=== PATIENT | female | born 1975 | race Caucasian/White ===

== ENCOUNTER 2016-12-08 16:46 | Emergency (ER) | payer OTHER ==
[2016-12-08 17:00] VITALS: O2SAT 100
[2016-12-08] MEDS ORDERED: Vistaril 50 MG/ML IM ONE ×2 (17:08→17:18)
--- NOTE | 2016-12-08 17:15 | ERPHSYRPT ---
- History of Present Illness Time Seen by Provider: 12/08/16 17:00 Source: patient Patient Subjective Stated Complaint: PT STATES YESTERDAY SHE BEGAN EXPERIENCING PROBLEMS WITH HER BLOOD PRESSURE. REPORTS SHE CHECKED IT TODAY AND FOUND IT TO BE 147/104 AND UPON [id number]. PT REPORTS DIZZINESS, SEVERE HEADACHE, AND DOUBLE VISION. PT ALSO NOTES SHE HAS RECENTLY HAD SOME ABNORMAL MENSTRUAL BLEEDING. Triage Nursing Assessment: PT IS AOX3, AMBULATORY TO COT WITH NO DIFFICULTIES, PT APPEARS ANXIOUS, PUPILS ARE PERRL, HAND TRAVEL WRITER ARE STRONG AND EQUAL, RESPS ARE EASY AND NONLABORED, PULSES ARE STRONG AND EQUAL. 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 She has noted higher BP than normal since yesterday. Today it was 135/86 and then higher as she rechecked it. She felt shaky, blurred vision, headache. No chest pain, vomiting. She has had irregular periods and has referral for cat hooker evaluation. She had to leave work and drove to ER. 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 Timing/Duration: today, yesterday Severity: moderate Allergies/Adverse Reactions: ciprofloxacin [From Cipro] Adverse Reaction (Verified 12/08/16 17:01) sulfamethoxazole [From Bactrim] Adverse Reaction (Verified 12/08/16 17:01) trimethoprim [From Bactrim] Adverse Reaction (Verified 12/08/16 17:01) Home Medications: Topiramate [Trokendi Xr] 50 mg PO DAILY 12/08/16 [History] Hx Tetanus, Diphtheria Vaccination/Date Given: No Hx Influenza Vaccination/Date Given: No Hx Pneumococcal Vaccination/Date Given: No Immunizations Up to Date: Yes - Review of Systems Constitutional: No Fever, No Chills Eyes: Vision Changes Ears, Nose, & Throat: No Symptoms Respiratory: No Dyspnea Cardiac: No Chest Pain, No Palpitations, No Syncope Abdominal/Gastrointestinal: No Abdominal Pain, No Nausea, No Vomiting Musculoskeletal: No Back Pain, No Neck Pain Skin: No Rash Neurological: Dizziness, Headache, No Focal Weakness, No Parasthesia All Other Systems: Reviewed and Negative - Past Medical History Pertinent Past Medical History: Yes Cardiac History: Hypertension Psycho-Social History: Anxiety, Depression Female Reproductive Disorders: Endometriosis Other Medical History: OVARIAN CYSTS - Past Surgical History Past Surgical History: Yes Female Surgical History: Dilation & Curettage Other Surgical History: OVARIAN CYST REMOVAL - Social History Smoking Status: Former smoker Drug Use: none Patient Lives Alone: No - Female History Hx Last Menstrual Period: 12/06/16 - Nursing Vital Signs Nursing Vital Signs: Initial Vital Signs Temperature 98.1 F Temperature Source Oral Pulse Rate 72 Respiratory Rate 18 Blood Pressure [Right Arm] 143/72 Pain Intensity 10 - Physical Exam General Appearance: alert Eye Exam: PERRL/EOMI Ears, Nose, Throat Exam: normal ENT inspection, moist mucous membranes Neck Exam: normal inspection, non-tender, supple Respiratory Exam: normal breath sounds Cardiovascular Exam: regular rate/rhythm, No murmur Gastrointestinal/Abdomen Exam: soft, No tenderness, No distention Extremity Exam: normal inspection, normal range of motion Neurologic Exam: alert, oriented x 3, cooperative, magnesium mill operator II-XII nml as tested, nml cerebellar function, nml station & gait, sensation nml, other (flat affect) , No motor deficits Skin Exam: warm, dry, No rash SpO2 Interpretation: normal SpO2: 100 Oxygen Delivery: Room Air - Course Nursing assessment & vital signs reviewed: Yes Ordered Tests: Active Orders 24 hr Category Date Time Status ACCUCHECK [Accucheck] STAT Care 12/08/16 17:09 Active Clean Catch Urine Specimen STAT Care 12/08/16 17:08 Active CULTURE,URINE Stat Lab 12/08/16 17:16 Received HCG,QUALITATIVE URINE Stat Lab 12/08/16 17:18 Completed UA W/ MICROSCOPIC Stat Lab 12/08/16 17:16 Completed Urine Triage Profile Stat Lab 12/08/16 17:16 Completed Medication Summary Discontinued Medications Generic Name Dose Route Start Last Admin Trade Name Freq PRN Reason Stop Dose Admin Hydroxyzine HCl 50 mg 12/08/16 17:08 12/08/16 17:19 Vistaril 50 Mg/Ml IM 12/08/16 17:09 50 mg STAT ONE Administration Hydroxyzine HCl Confirm 12/08/16 17:18 Vistaril 50 Mg/Ml Administered 12/08/16 17:19 Dose 50 mg IM .App [employer] ONE Lab/Rad Data: Laboratory Results 07/02/17 07/02/17 07/02/17 Range/Units 17:18 17:16 17:16 Ur Collection Type CLEAN CATCH Urine Color YELLOW (YELLOW) Urine Appearance CLOUDY (CLEAR) Urine pH 6.0 (5-6) Ur Specific [place] 1.030 (1.005-1.025) Urine Protein TRACE (Negative) Urine Ketones NEGATIVE (NEGATIVE) Urine Blood 5-10 (0-5) Erick/ul Urine Nitrite NEGATIVE (NEGATIVE) Urine Bilirubin NEGATIVE (NEGATIVE) Urine Urobilinogen NORMAL (0-1) mg/dL Ur Leukocyte Esterase TRACE (NEGATIVE) Urine Microscopic RBC 5-10 (0-2) /HPF Urine Microscopic WBC 5-10 (0-5) /HPF Ur Epithelial Cells MANY (FEW) /HPF Calcium Oxalate Crystal 5-10 (NEGATIVE) /HPF Urine Bacteria MANY (NEGATIVE) /HPF Urine Mucus MANY (NEGATIVE) /HPF Urine Glucose NEGATIVE (NEGATIVE) mg/dL Urine HCG, Qual NEGATIVE (Negative) Urine Opiates Level NEG. (NEGATIVE) Ur Methadone NEG. (NEGATIVE) Urine Barbiturates NEG. (NEGATIVE) Ur Phencyclidine (PCP) NEG. (NEGATIVE) Urine Amphetamine POS. (NEGATIVE) U Benzodiazepine Level NEG. (NEGATIVE) Urine Cocaine NEG. (NEGATIVE) Urine Marijuana (THC) NEG. (NEGATIVE) Specimen Received 12/08/16 1720 - Progress Progress Note: 12/08/16 17:55 BP better after vistaril as are symptoms. She now reports taking adipex. INSPECT reviewed and she filled #30 in September. Advised no more adipex and follow up with Dr Lee tomorrow. Will release with instr and work slip. Counseled pt/family regarding: lab results, diagnosis, need for follow-up - Departure Time of Disposition: 17:56 Departure Disposition: Home Clinical Impression: isolated elevation of blood pressure Condition: Fair Critical Care Time: No Referrals: DANK VIDAL [Primary Care Provider] - Instructions: High Blood Pressure, Dextroamphetamine and Amphetamine. Additional Instructions: no more adipex no driving tonite and stay with family off work today call dr lee tomorrow for follow up return for problems or concerns check and record blood pressure twice a day
[2016-12-08 17:31] LABS: Collection Type CLEAN CATCH
[2016-12-08 17:32] LABS: ADD URINE CULTURE? YES (NO); Bacteria MANY /HPF (NEGATIVE); Bilirubin NEGATIVE (NEGATIVE); COMPLETE URINE MICROSCOPIC? YES; Epithelial Cells MANY /HPF (FEW); Glucose NEGATIVE (NEGATIVE); Leukocyte Esterase TRACE (NEGATIVE); Mucus MANY /HPF (NEGATIVE)
[2016-12-08 17:49] VITALS: BP 143/72; PULSE 72
== END 2016-12-08 18:05 | disposition home or self-care (01) ==
LOC: ED 16:46
DX: R03.0 Elevated blood-pressure reading, without diagnosis of hypertension (principal)
CPT/HCPCS: 80307; 81000; 82962; 84703; 87077; 87086; 87186; 96372; 99284; J3410

== ENCOUNTER 2017-09-05 07:44 | Emergency (ER) | payer SELFPAY ==
--- NOTE | 2017-09-05 08:16 | ERPHSYRPT ---
- History of Present Illness Time Seen by Provider: 09/05/17 08:02 Source: patient Exam Limitations: no limitations Patient Subjective Stated Complaint: pt reports left eye swelling and pain beginning yesterday-denies injury Triage Nursing Assessment: pt pink warm and [id number] noted to left eye Physician History: The patient is a 42-year-old female complaining of redness on the left side of her nose that began yesterday and has slowly spread towards her left eye. She woke up this morning with redness under her left eye and her left eye mattered shut. She is concerned about the difficulty with her left eye. 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 She's had MRSA twice around her lips. The initial MRSA with behind her knee. She has been successfully treated for these outbreaks however she has never used any antibiotic ointment in her nose. Today she denies fever or chills. She has no vision changes. Her past medical history is significant for MRSA abscesses. Timing/Duration: yesterday Location: left eye Severity: mild Apparent Injury: no Associated Symptoms: matting Visual Assistive Devices: None Allergies/Adverse Reactions: ciprofloxacin [From Cipro] Adverse Reaction (Mild, Verified 09/05/17 07:49) Vomiting Sulfa (Sulfonamide Antibiotics) Adverse Reaction (Mild, Verified 09/05/17 07:49) Vomiting sulfamethoxazole [From Bactrim] Adverse Reaction (Mild, Verified 09/05/17 07:49) Vomiting trimethoprim [From Bactrim] Adverse Reaction (Mild, Verified 09/05/17 07:49) Vomiting Hx Tetanus, Diphtheria Vaccination/Date Given: No Hx Influenza Vaccination/Date Given: No Hx Pneumococcal Vaccination/Date Given: No Immunizations Up to Date: Yes - Review of Systems Constitutional: No Fever, No Chills Eyes: No Symptoms Ears, Nose, & Throat: No Symptoms Respiratory: No Cough, No Dyspnea Cardiac: No Chest Pain, No Edema, No Syncope Abdominal/Gastrointestinal: No Abdominal Pain, No Nausea, No Vomiting, No Diarrhea Genitourinary Symptoms: No Dysuria Musculoskeletal: No Back Pain, No Neck Pain Skin: No Rash Neurological: No Dizziness, No Focal Weakness, No Sensory Changes Psychological: No Symptoms Endocrine: No Symptoms Hematologic/Lymphatic: No Symptoms Immunological/Allergic: No Symptoms All Other Systems: Reviewed and Negative - Past Medical History Pertinent Past Medical History: Yes Cardiac History: Hypertension Psycho-Social History: Anxiety, Depression Female Reproductive Disorders: Endometriosis Other Medical History: OVARIAN CYSTS - Past Surgical History Past Surgical History: Yes Female Surgical History: Dilation & Curettage Other Surgical History: OVARIAN CYST REMOVAL - Social History Smoking Status: Never smoker Exposure to second hand smoke: No Drug Use: none Patient Lives Alone: No - Female History Hx Last Menstrual Period: hysterectomy Hx Now: No - Nursing Vital Signs Nursing Vital Signs: Initial Vital Signs Pulse Rate 74 09/05/17 07:51 Respiratory Rate 18 09/05/17 07:51 Blood Pressure 137/93 09/05/17 07:51 O2 Sat by Pulse Oximetry 99 09/05/17 07:51 Pain Scale Pain Intensity 5 - Physical Exam General Appearance: no apparent distress Vision Acuity Degree Evaluation Phase: Uncorrected Vision Acuity Right Eye: 20/200 Vision Acuity Left Eye: 20/200 Eye Exam: bilateral eye: normal inspection, PERRL Ears, Nose, Throat Exam: other (There is mild erythema and swelling over the left tip of her nose that extends from the left tip towards the inferior aspect of the left eye and cheek.) Neck Exam: normal inspection Respiratory Exam: normal breath sounds Cardiovascular Exam: regular rate/rhythm Gastrointestinal Exam: soft Extremity Exam: normal inspection Neurologic: alert Skin Exam: normal color, rash SpO2 Interpretation: normal SpO2: 99 Oxygen Delivery: Room Air - Progress Counseled pt/family regarding: diagnosis - Departure Time of Disposition: 08:21 Departure Disposition: Home Clinical Impression: Cellulitis Condition: Stable Critical Care Time: No Additional Instructions: You have the beginnings of cellulitis that is likely due to a flareup of MRSA. Take clindamycin 300 mg 4 times a day for 10 days. Also use 1/2 g mupirocin to each nostril 2 times a day for 5 days. If the condition does not improve within 2-3 days, please contact and isn't your primary medical doctor. Prescriptions: Clindamycin HCl 1 cap PO QID #40 capsule Mupirocin 22 gm TP BID #1 oint...g.
[2017-09-05 08:53] VITALS: BP 121/81; PULSE 71; O2SAT 98
== END 2017-09-05 08:55 | disposition home or self-care (01) ==
LOC: ED 07:44
DX: L03.90 Cellulitis, unspecified (principal); Z86.14 Personal history of Methicillin resistant Staphylococcus aureus infection; H57.12 Ocular pain, left eye; F41.8 Other specified anxiety disorders
CPT/HCPCS: 99282

== ENCOUNTER 2020-04-20 12:31 | Emergency (ER) | payer MEDICAID ==
[2020-04-20] MEDS ORDERED: DELTASONE 20 MG PO ONE (12:56)
[2020-04-20] MEDS ORDERED: DELTASONE 20 MG ONE (13:01)
--- NOTE | 2020-04-20 13:04 | ERPHSYRPT ---
- History of Present Illness Time Seen by Provider: 04/20/20 12:40 Source: patient Exam Limitations: no limitations Patient Subjective Stated Complaint: PT states "I think I am allergic to dust mites. I am swelling in my forehead and arms." Triage Nursing Assessment: Pt presented alert and oriented X 3, skin pwd Pt ambulates with an upright steady gait, able to speak in clear full sentences. PT in no apparent respiratory distress. Pt has red rough spots on her forehead and back of her right arm. Physician History: Patient is a 44-year-old female presents to her ED with complaints of allergic reaction. Patient believes she is allergic to dust mites. Patient complains of pruritus and swelling of her forehead and arms. Symptoms started last night. No associated shortness of breath. No difficulty swallowing. No fullness of her throat. No wheezing. No nausea no vomiting. No diarrhea. No abdominal cramping. There are scattered hives observed on both upper extremity and her forehead. Patient otherwise appears well. Patient symptoms are mild to moderate in intensity. Patient states she feels a fullness to her neck. She is concerned with throat infection. Patient is otherwise generally healthy. She voices no other complaints concerns at this time. Timing/Duration: yesterday Severity: mild Modifying Factors: Improves With: nothing Associated Symptoms: denies symptoms Allergies/Adverse Reactions: ciprofloxacin [From Cipro] Adverse Reaction (Mild, Verified 09/05/17 07:49) Vomiting Sulfa (Sulfonamide Antibiotics) Adverse Reaction (Mild, Verified 09/05/17 07:49) Vomiting sulfamethoxazole [From Bactrim] Adverse Reaction (Mild, Verified 09/05/17 07:49) Vomiting trimethoprim [From Bactrim] Adverse Reaction (Mild, Verified 09/05/17 07:49) Vomiting Hx Tetanus, Diphtheria Vaccination/Date Given: No Hx Influenza Vaccination/Date Given: No Hx Pneumococcal Vaccination/Date Given: No Immunizations Up to Date: Yes Travel Risk - International Travel Have you traveled outside of the country in past 3 weeks: No - Coronavirus Screening Are you exhibiting any of the following symptoms?: No Close contact with a COVID-19 positive Pt in past 14-21 Days: No - Review of Systems Constitutional: No Symptoms, No Fever, No Chills Eyes: No Symptoms Ears, Nose, & Throat: No Symptoms Respiratory: No Symptoms, No Cough, No Dyspnea Cardiac: No Symptoms, No Chest Pain, No Edema, No Syncope Abdominal/Gastrointestinal: No Symptoms, No Abdominal Pain, No Nausea, No Vomiting, No Diarrhea Genitourinary Symptoms: No Symptoms, No Dysuria Musculoskeletal: No Symptoms, No Back Pain, No Neck Pain Skin: No Symptoms, No Rash Neurological: No Symptoms, No Dizziness, No Focal Weakness, No Sensory Changes Psychological: No Symptoms Endocrine: No Symptoms Hematologic/Lymphatic: No Symptoms Immunological/Allergic: No Symptoms All Other Systems: Reviewed and Negative - Past Medical History Pertinent Past Medical History: Yes Neurological History: Migraines Cardiac History: Hypertension Respiratory History: No Pertinent History Endocrine Medical History: Other Musculoskeletal History: Arthritis Psycho-Social History: Anxiety, Depression Female Reproductive Disorders: Endometriosis Other Medical History: history of kidney failure - Past Surgical History Past Surgical History: Yes Female Surgical History: Dilation & Curettage Other Surgical History: OVARIAN CYST REMOVAL - Social History Smoking Status: Former smoker Exposure to second hand smoke: Yes Drug Use: none Patient Lives Alone: Yes - Female History Hx Last Menstrual Period: menopause Hx Now: No - Nursing Vital Signs Nursing Vital Signs: Initial Vital Signs Temperature 98.6 F 04/20/20 12:38 Pulse Rate 98 H 04/20/20 12:38 Respiratory Rate 20 04/20/20 12:38 Blood Pressure 165/90 04/20/20 12:38 Pain Scale Pain Intensity 4 - Physical Exam General Appearance: no apparent distress, alert Eye Exam: PERRL/EOMI, eyes nml inspection Ears, Nose, Throat Exam: normal ENT inspection, TMs normal, pharynx normal, moist mucous membranes Neck Exam: normal inspection, non-tender, supple, full range of motion Respiratory Exam: normal breath sounds, lungs clear, No respiratory distress Cardiovascular Exam: regular rate/rhythm, normal heart sounds, normal peripheral pulses Gastrointestinal/Abdomen Exam: soft, normal bowel sounds, No tenderness, No mass Back Exam: normal inspection, normal range of motion, No CVA tenderness, No vertebral tenderness Extremity Exam: normal inspection, normal range of motion, pelvis stable Neurologic Exam: alert, oriented x 3, cooperative, normal mood/affect, nml cerebellar function, nml station & gait, sensation nml, No motor deficits Skin Exam: normal color, warm, dry, other (Scattered hives on bilateral upper extremity and left forehead. No superimposed cellulitis. No open or draining lesions.), No rash Lymphatic Exam: No adenopathy SpO2 Interpretation: normal SpO2: 98 O2 Delivery: Room Air - Course Nursing assessment & vital signs reviewed: Yes Ordered Tests: Medication Summary Discontinued Medications Generic Name Dose Route Start Last Admin Trade Name Raymundo PRN Reason Stop Dose Admin Prednisone 60 mg 04/20/20 12:56 04/20/20 13:02 Deltasone 20 Mg PO 04/20/20 12:57 60 mg STAT ONE Administration Prednisone Confirm 04/20/20 13:01 Deltasone 20 Mg Administered 04/20/20 13:02 Dose 40 mg .ROUTE .STK-MED ONE Lab/Rad Data: Laboratory Results 04/20/20 Range/Units 13:30 Group A Strep Antibody NOT DETECTED (NEGATIVE) - Progress Progress: improved Progress Note: 04/20/20 13:02 Patient reassessed. Symptoms improved. Will discharge home with a prescription of prednisone. Rapid strep negative. hCG not obtained as patient states she guarantee there is no possibility she could be . Patient declined a test. Patient states is ready for discharge. Patient advised to follow-up with her primary care doctor within 48 hours for reevaluation. Counseled pt/family regarding: lab results, diagnosis, need for follow-up - Departure Departure Disposition: Home Clinical Impression: Hives, Allergies Condition: Stable Critical Care Time: No Referrals: YESENIA KOCH [Primary Care Provider] - Additional Instructions: Discharge/Care Plan CRISTINA POOLE was seen on 04/20/20 in the Emergency Room. The patient was counseled regarding Diagnosis,Lab results, Imaging studies, need for follow up and when to return to the Emergency Room. Prescriptions given: Discharge Note I have spoken with the patient and/or caregivers. I have explained the patient's condition, diagnosis and treatment plan based on the information available to me at this time. I have answered the patient's and/or caregiver's questions and addressed any concerns. The patient and/or caregivers have as good understanding of the patient's diagnosis, condition and treatment plan as can be expected at this point. The vital signs have been stable. The patient's condition is stable and appropriate for discharge from the emergency department. The patient will pursue further outpatient evaluation with the primary care physician or other designated or consulting physician as outlined in the discharge instructions. The patient and/or caregivers are agreeable to this plan of care and follow-up instructions have been explained in detail. The patient and/or caregivers have received these instruction. The patient/and or caregivers are aware that any significant change in condition or worsening of symptoms should prompt an immediate return to this or the closest emergency department or call 911. Prescriptions: Prednisone 10 mg [Deltasone 10 mg] 50 mg PO DAILY 3 Days #15 tablet
[2020-04-20 14:36] VITALS: BP 169/104; PULSE 84; O2SAT 96
== END 2020-04-20 14:35 | disposition home or self-care (01) ==
LOC: ED 12:31
DX: L50.9 Urticaria, unspecified (principal); J30.89 Other allergic rhinitis
CPT/HCPCS: 87651; 99283; A9270-GY

== ENCOUNTER 2020-04-30 22:16 | Emergency (ER) | payer MEDICAID ==
[2020-04-30] MEDS ORDERED: Sodium Chloride 0.9% 1000 ML 1,000 ML IV STA (22:52)
[2020-04-30] MEDS ORDERED: Zofran 4 MG/2 ML VIAL IV ONE (22:52)
[2020-04-30] MEDS ORDERED: BENADRYL 50 MG/ML IV ONE (22:52)
[2020-04-30] MEDS ORDERED: Reglan 10 MG/2 ML IV ONE (22:52)
--- NOTE | 2020-04-30 22:59 | ERPHSYRPT ---
- History of Present Illness Time Seen by Provider: 04/30/20 22:45 Source: patient, EMS Exam Limitations: no limitations Patient Subjective Stated Complaint: Pt c/o dizziness, headache, fatigue, body aches, diarrhea, abd pain, nausea but no vomiting. Triage Nursing Assessment: Pt arrived via EMS with c/o dizziness, headache, fatigue, body aches, diarrhea, abd pain, nausea but no vomiting. Pt states, "I have felt like this ever since I got up today, something has just been off". Lungs clear, heart tones reg and tachy, abd soft with active bs x4 quad, tender on palpation to LLQ. Physician History: 44Years old female with history of anxiety depression, migraines presented in the ER with chief complaint of left temporal headache and dizziness since she woke up this morning. Patient reports she always have dizziness with the headache but she has been feeling weak fatigued and tired with no energy to her routine activities. Denies any difficulty speech, visual disturbance, numbness tingling or focal weakness. Denies any chest pain palpitations or shortness of breath. Patient also reports earlier her blood pressure was more than 150 with a headache and dizziness. It is associated with nausea but no vomiting. She has minimal nonproductive cough and congestion but denies any fever or chills. She has abdominal pain off and on for the last 2 weeks with occasional diarrhea. Complaining of pain in the left lower quadrant. No difficulty urination. Timing/Duration: today, sudden, worse Severity: moderate Modifying Factors: Improves With: movement Associated Symptoms: nausea, abdominal pain, weakness, No chest pain, No fever Allergies/Adverse Reactions: ciprofloxacin [From Cipro] Adverse Reaction (Mild, Verified 04/30/20 22:40) Vomiting Sulfa (Sulfonamide Antibiotics) Adverse Reaction (Mild, Verified 04/30/20 22:40) Vomiting sulfamethoxazole [From Bactrim] Adverse Reaction (Mild, Verified 04/30/20 22:40) Vomiting trimethoprim [From Bactrim] Adverse Reaction (Mild, Verified 04/30/20 22:40) Vomiting Home Medications: No Reportable Medications [No Reported Medications] 04/30/20 [History] Hx Tetanus, Diphtheria Vaccination/Date Given: No Hx Influenza Vaccination/Date Given: No Hx Pneumococcal Vaccination/Date Given: No Immunizations Up to Date: No Travel Risk - International Travel Have you traveled outside of the country in past 3 weeks: No - Coronavirus Screening Are you exhibiting any of the following symptoms?: Yes Symptoms: Vomiting/Diarrhea, Headaches/Body Aches/Fatigue Close contact with a COVID-19 positive Pt in past 14-21 Days: No - Review of Systems Constitutional: No Symptoms Eyes: No Symptoms Ears, Nose, & Throat: No Symptoms Respiratory: No Symptoms Cardiac: No Symptoms Abdominal/Gastrointestinal: Abdominal Pain, Nausea, Diarrhea Genitourinary Symptoms: No Symptoms Musculoskeletal: No Symptoms Neurological: Dizziness, Headache, No Parasthesia, No Seizure, No Sensory Changes, No Speech Changes Psychological: Anxiety, Depression Endocrine: No Symptoms Hematologic/Lymphatic: No Symptoms Immunological/Allergic: No Symptoms - Past Medical History Pertinent Past Medical History: Yes Neurological History: No Pertinent History ENT History: No Pertinent History Cardiac History: No Pertinent History Respiratory History: No Pertinent History Endocrine Medical History: No Pertinent History Musculoskeletal History: No Pertinent History GI Medical History: No Pertinent History History: No Pertinent History Psycho-Social History: Anxiety, Depression, Other Female Reproductive Disorders: No Pertinent History Other Medical History: ocd - Past Surgical History Past Surgical History: Yes Neuro Surgical History: No Pertinent History Cardiac: No Pertinent History Respiratory: No Pertinent History Gastrointestinal: No Pertinent History Genitourinary: No Pertinent History Musculoskeletal: No Pertinent History Female Surgical History: Dilation & Curettage, Other Other Surgical History: FIBROID TUMORS, CYST - Social History Smoking Status: Former smoker Exposure to second hand smoke: No Drug Use: none Patient Lives Alone: Yes - Female History Hx Now: No - Nursing Vital Signs Nursing Vital Signs: Initial Vital Signs Temperature 98.1 F 04/30/20 22:25 Pulse Rate 104 H 04/30/20 22:25 Respiratory Rate 18 04/30/20 22:25 Blood Pressure 144/117 04/30/20 22:25 O2 Sat by Pulse Oximetry 99 04/30/20 22:25 Pain Scale Pain Intensity 8 - Physical Exam General Appearance: no apparent distress, alert, anxiety Eye Exam: PERRL/EOMI, eyes nml inspection Ears, Nose, Throat Exam: normal ENT inspection, TMs normal, pharynx normal Neck Exam: normal inspection, non-tender, supple, full range of motion Respiratory Exam: normal breath sounds, lungs clear Cardiovascular Exam: regular rate/rhythm, normal heart sounds Gastrointestinal/Abdomen Exam: soft, normal bowel sounds, tenderness (Mild left lower quadrant tenderness. No rebound tenderness.) Back Exam: normal inspection, normal range of motion Extremity Exam: normal inspection, normal range of motion, pelvis stable Neurologic Exam: alert, oriented x 3, cooperative, senior care provider II-XII nml as tested, nml cerebellar function, sensation nml, No normal mood/affect (Anxious), No motor deficits, No motor weakness, No facial droop, No slurred speech Skin Exam: normal color SpO2 Interpretation: normal SpO2: 99 O2 Delivery: Room Air - Course EKG Interpreted by Me: RATE (78), Sinus Rhythm, NORMAL AXIS, NORMAL INTERVALS, NORMAL QRS Ordered Tests: Active Orders 24 hr Category Date Time Status EKG-ER Only STAT Care 04/30/20 22:52 Active IV Insertion STAT Care 04/30/20 22:52 Active CHEST 1 VIEW (PORTABLE) Stat Exams 04/30/20 22:53 Taken HEAD WITHOUT CONTRAST [CT] Stat Exams 04/30/20 22:52 Taken HCG,QUALITATIVE URINE Stat Lab 04/30/20 23:06 Completed TROPONIN Q3H Lab 04/30/20 23:00 Completed TROPONIN Q3H Lab 05/01/20 02:00 Ordered TROPONIN Q3H Lab 05/01/20 05:00 Ordered TROPONIN Q3H Lab 05/01/20 08:00 Ordered TROPONIN Q3H Lab 05/01/20 11:00 Ordered UA W/RFX UR CULTURE Stat Lab 04/30/20 23:06 Completed Medication Summary Discontinued Medications Generic Name Dose Route Start Last Admin Trade Name Irajq PRN Reason Stop Dose Admin Diphenhydramine HCl 25 mg 04/30/20 22:52 04/30/20 23:08 Benadryl 50 Mg/Ml IV 04/30/20 22:53 25 mg STAT ONE Administration Diphenhydramine HCl Confirm 04/30/20 23:03 Benadryl 50 Mg/Ml Administered 04/30/20 23:04 Dose 50 mg .ROUTE .STK-MED ONE Sodium Chloride 1,000 mls @ 999 mls/hr 04/30/20 22:52 04/30/20 23:08 Sodium Chloride 0.9% 1000 Ml IV 04/30/20 23:52 999 mls/hr .Q1H1M STA Administration Sodium Chloride Confirm 04/30/20 23:03 Sodium Chloride 0.9% 1000 Ml Administered 04/30/20 23:04 Dose 1,000 mls @ ud .ROUTE .STK-MED ONE Ketorolac Tromethamine 30 mg 05/01/20 00:00 05/01/20 00:03 Toradol 30 Mg Injection IV 05/01/20 00:01 30 mg STAT ONE Administration Ketorolac Tromethamine Confirm 05/01/20 00:02 Toradol 30 Mg Injection Administered 05/01/20 00:03 Dose 30 mg .ROUTE .STK-MED ONE Metoclopramide HCl 10 mg 04/30/20 22:52 04/30/20 23:08 Reglan 10 Mg/2 Ml IV 04/30/20 22:53 10 mg STAT ONE Administration Metoclopramide HCl Confirm 04/30/20 23:03 Reglan 10 Mg/2 Ml Administered 04/30/20 23:04 Dose 10 mg .ROUTE .STK-MED ONE Ondansetron HCl 4 mg 04/30/20 22:52 04/30/20 23:09 Zofran 4 Mg/2 Ml Vial IV 04/30/20 22:53 4 mg STAT ONE Administration Ondansetron HCl Confirm 04/30/20 23:03 Zofran 4 Mg/2 Ml Vial Administered 04/30/20 23:04 Dose 4 mg .ROUTE .STK-MED ONE Lab/Rad Data: Laboratory Result Diagrams 04/30/20 00:25 04/30/20 00:25 Laboratory Results 04/30/20 04/30/20 04/30/20 Range/Units 23:06 23:06 23:00 WBC (4.0-10.5) K/mm3 RBC (4.1-5.4) M/mm3 Hgb (12.0-16.0) gm/dl Hct (35-47) % MCV (78-100) fl MCH (26-32) pg MCHC (32-36) g/dl RDW (11.5-14.0) % Plt Count (150-450) K/mm3 MPV (7.5-11.0) fl Gran % (36.0-66.0) % Eos # (Auto) (0-0.5) Absolute Lymphs (auto) (1.0-4.6) Absolute Monos (auto) (0.0-1.3) Lymphocytes % (24.0-44.0) % Monocytes % (0.0-12.0) % Eosinophils % (0.00-5.0) % Basophils % (0.0-0.4) % Absolute Granulocytes (1.4-6.9) Basophils # (0-0.4) Sodium (137-145) mmol/L Potassium (3.5-5.1) mmol/L Chloride (98-107) mmol/L Carbon Dioxide (22-30) mmol/L Anion Gap (5-15) MEQ/L BUN (7-17) mg/dL Creatinine (0.52-1.04) mg/dL Estimated GFR ML/MIN Glucose (74-106) mg/dL Calcium (8.4-10.2) mg/dL Total Bilirubin (0.2-1.3) mg/dL AST (14-36) U/L ALT (0-35) U/L Alkaline Phosphatase (38-126) U/L Troponin I < 0.012 (0.000-0.034) ng/mL Serum Total Protein (6.3-8.2) g/dL Albumin (3.5-5.0) g/dL Lipase (23-300) U/L Urine Color YELLOW (YELLOW) Urine Appearance CLEAR (CLEAR) Urine pH 6.0 (5-6) Ur Specific [place] 1.011 (1.005-1.025) Urine Protein NEGATIVE (Negative) Urine Ketones NEGATIVE (NEGATIVE) Urine Blood MODERATE (0-5) Erick/ul Urine Nitrite NEGATIVE (NEGATIVE) Urine Bilirubin NEGATIVE (NEGATIVE) Urine Urobilinogen NEGATIVE (0-1) mg/dL Ur Leukocyte Esterase NEGATIVE (NEGATIVE) Urine WBC (Auto) NONE (0-5) /HPF Urine RBC (Auto) NONE (0-2) /HPF U Epithel Cells (Auto) NONE (FEW) /HPF Urine Bacteria (Auto) NONE (NEGATIVE) /HPF Urine Mucus (Auto) SLIGHT (NEGATIVE) /HPF Urine Culture Reflexed NO (NO) Urine Glucose NEGATIVE (NEGATIVE) mg/dL Urine HCG, Qual NEGATIVE (Negative) 04/30/20 04/30/20 Range/Units 00:25 00:25 WBC 11.6 H (4.0-10.5) K/mm3 RBC 4.29 (4.1-5.4) M/mm3 Hgb 13.2 (12.0-16.0) gm/dl Hct 39.7 (35-47) % MCV 92.5 (78-100) fl MCH 30.8 (26-32) pg MCHC 33.2 (32-36) g/dl RDW 13.3 (11.5-14.0) % Plt Count 240 (150-450) K/mm3 MPV 12.0 H (7.5-11.0) fl Gran % 68.5 H (36.0-66.0) % Eos # (Auto) 0.34 (0-0.5) Absolute Lymphs (auto) 2.40 (1.0-4.6) Absolute Monos (auto) 0.87 (0.0-1.3) Lymphocytes % 20.7 L (24.0-44.0) % Monocytes % 7.5 (0.0-12.0) % Eosinophils % 2.9 (0.00-5.0) % Basophils % 0.4 (0.0-0.4) % Absolute Granulocytes 7.94 H (1.4-6.9) Basophils # 0.05 (0-0.4) Sodium 138 (137-145) mmol/L Potassium 3.9 (3.5-5.1) mmol/L Chloride 108 H (98-107) mmol/L Carbon Dioxide 23 (22-30) mmol/L Anion Gap 11.0 (5-15) MEQ/L BUN 14 (7-17) mg/dL Creatinine 0.69 (0.52-1.04) mg/dL Estimated GFR > 60.0 ML/MIN Glucose 112 H (74-106) mg/dL Calcium 9.2 (8.4-10.2) mg/dL Total Bilirubin 0.40 (0.2-1.3) mg/dL AST 23 (14-36) U/L ALT 22 (0-35) U/L Alkaline Phosphatase 101 (38-126) U/L Troponin I (0.000-0.034) ng/mL Serum Total Protein 6.6 (6.3-8.2) g/dL Albumin 3.8 (3.5-5.0) g/dL Lipase 39 (23-300) U/L Urine Color (YELLOW) Urine Appearance (CLEAR) Urine pH (5-6) Ur Specific [place] (1.005-1.025) Urine Protein (Negative) Urine Ketones (NEGATIVE) Urine Blood (0-5) Erick/ul Urine Nitrite (NEGATIVE) Urine Bilirubin (NEGATIVE) Urine Urobilinogen (0-1) mg/dL Ur Leukocyte Esterase (NEGATIVE) Urine WBC (Auto) (0-5) /HPF Urine RBC (Auto) (0-2) /HPF U Epithel Cells (Auto) (FEW) /HPF Urine Bacteria (Auto) (NEGATIVE) /HPF Urine Mucus (Auto) (NEGATIVE) /HPF Urine Culture Reflexed (NO) Urine Glucose (NEGATIVE) mg/dL Urine HCG, Qual (Negative) - Progress Progress: improved, re-examined Progress Note: 05/01/20 01:39 FEELING BETTER Counseled pt/family regarding: lab results, diagnosis, need for follow-up, rad results - Departure Departure Disposition: Home Clinical Impression: Viral syndrome Migraine Qualifiers: Migraine type: without aura Status migrainosus presence: without status migrainosus Intractability: not intractable Qualified Code(s): G43.009 - Migraine without aura, not intractable, without status migrainosus Diarrhea Qualifiers: Diarrhea type: unspecified type Qualified Code(s): R19.7 - Diarrhea, unspecified Condition: Stable Critical Care Time: No Referrals: YESENIA KOCH [Primary Care Provider] - (TOMORROW FOR RE EVALUATION ) Instructions: Migraines (DC), Viral Syndrome (DC) Additional Instructions: Plenty of fluids. Take Tylenol as needed. Follow-up with your primary care physician for reevaluation. Return to ER for any worsening.
[2020-04-30] MEDS ORDERED: Sodium Chloride 0.9% 1000 ML 1,000 ML ONE (23:03)
[2020-04-30] MEDS ORDERED: Zofran 4 MG/2 ML VIAL ONE (23:03)
[2020-04-30] MEDS ORDERED: Reglan 10 MG/2 ML ONE (23:03)
[2020-04-30] MEDS ORDERED: BENADRYL 50 MG/ML ONE (23:03)
[2020-04-30 23:28] LABS: Appearance CLEAR (CLEAR); Bilirubin NEGATIVE (NEGATIVE); Blood MODERATE Ery/ul (0-5); Glucose NEGATIVE (NEGATIVE); Ketones NEGATIVE (NEGATIVE); Leukocyte Esterase NEGATIVE (NEGATIVE); Mucus SLIGHT /HPF (NEGATIVE); Nitrite NEGATIVE (NEGATIVE); Protein,Urine Dip NEGATIVE (Negative); Specific Gravity 1.011 (1.005-1.025); Urobilinogen NEGATIVE mg/dL (0-1)
[2020-05-01] VITALS: O2SAT 99
[2020-05-01] MEDS ORDERED: TORAdol 30 mg Injection IV ONE
[2020-05-01] MEDS ORDERED: TORAdol 30 mg Injection ONE (00:02)
[2020-05-01 00:49] VITALS: BP 146/99
[2020-05-01 01:08] VITALS: PULSE 76
[2020-05-01 01:12] LABS: ALBUMIN 3.8 g/dL (3.5-5.0); ALKALINE PHOSPHATASE 101 U/L (38-126); BLOOD UREA NITROGEN 14 mg/dL (7-17); CHLORIDE 108 mmol/L (98-107); Calcium 9.2 mg/dL (8.4-10.2); Carbon Dioxide 23 mmol/L (22-30); Creatinine 1 0.69 mg/dL (0.52-1.04); EST GLOMERULAR FILTRATION RATE > 60.0 ML/MIN; Glucose 112 mg/dL (74-106); LIPASE 39 U/L (23-300); Potassium 3.9 mmol/L (3.5-5.1); SGOT/AST 23 U/L (14-36); SGPT/ALT 22 U/L (0-35); SODIUM 138 mmol/L (137-145); Total Protein 6.6 g/dL (6.3-8.2)
[2020-05-01 01:38] LABS: Absolute Neutrophil Ct (ANC) 7.94 (1.4-6.9); BASOPHIL % 0.4 % (0.0-0.4); Basophil (Absolute #) 0.05 (0-0.4); Eosinophil % 2.9 % (0.00-5.0); Eosinophil (Absolute #) 0.34 (0-0.5); Hematocrit 39.7 % (35-47); Hemoglobin 13.2 gm/dl (12.0-16.0); Lymphocytes % 20.7 % (24.0-44.0); Mean Cell Volume 92.5 fl (78-100); Mean Corpuscular Hemoglobin 30.8 pg (26-32); Mean Corpuscular Hgb Concent. 33.2 g/dl (32-36); Monocyte (Absolute #) 0.87 (0.0-1.3); Monocytes % 7.5 % (0.0-12.0); Neutrophil % 68.5 % (36.0-66.0); Platelet Count 240 K/mm3 (150-450); Red Blood Count 4.29 M/mm3 (4.1-5.4); Red Cell Distribution Width 13.3 % (11.5-14.0); White Blood Count 11.6 K/mm3 (4.0-10.5)
--- NOTE | 2020-05-01 08:39 | XRAY ---
Indication: Dizziness. Comparison: July 24, 2018. Portable chest again demonstrates normal heart, lungs, and bony thorax.
--- NOTE | 2020-05-01 08:41 | XRAY ---
Indication: Headache and dizziness. Multiple contiguous axial images obtained through the head without contrast. Comparison: None Normal appearing brain parenchyma, ventricles, and bony calvarium. Visualized paranasal sinuses and mastoid air cells are clear. Impression: Normal CT head without contrast exam. Comment: Preliminary interpretation was made by [facility]. No critical discrepancy.
== END 2020-05-01 01:55 | disposition home or self-care (01) ==
LOC: ED 22:16
DX: B34.9 Viral infection, unspecified (principal); R51.9 Headache, unspecified; R53.83 Other fatigue; R19.7 Diarrhea, unspecified; R10.9 Unspecified abdominal pain; R11.0 Nausea; R42 Dizziness and giddiness
CPT/HCPCS: 36000; 36415; 70450; 71045; 80053; 81001; 83690; 84484; 84703; 85025; 93005; 96374; 96375; 99285; J1200; J1885; J2405

== ENCOUNTER 2023-01-09 15:44 | Emergency (ER) | payer OTHER ==
--- NOTE | 2023-01-09 15:46 | ERPHSYRPT ---
- History of Present Illness Time Seen by Provider: 01/09/23 15:46 Source: patient Exam Limitations: no limitations Physician History: This is an overweight 47-year-old white female patient of nurse jenifer Walls who has never been diagnosed with high blood pressure and not on any high blood pressure medication and presents to the emergency department with the com plaint of high blood pressure. Her initial blood pressure here was approximately 139/92. Her heart rate was in the low 100s. Patient states that she has a very anxious person and was at her physical exam appointment to start her new job. There she had 2 readings of blood pressure that was elevated. One was approximately 164 and the other was approximately 170s. Her heart rate was also in the 110 range. Patient cannot start her job until she has been evaluated for blood pressure issues. Patient called the office of nurse practitioner Mayra Walls and she was told to come to the emergency department to be evaluated for any emergency issues. Patient did state that approximately 1 year ago her son . She denies chest pain. She denies shortness of breath. She has no abdominal pain. She denies headache. She denies visual changes. Timing/Duration: today Severity: mild Modifying Factors: Improves With: nothing Associated Symptoms: denies symptoms Allergies/Adverse Reactions: ciprofloxacin [From Cipro] Adverse Reaction (Mild, Verified 04/30/20 22:40) Vomiting Sulfa (Sulfonamide Antibiotics) Adverse Reaction (Mild, Verified 04/30/20 22:40) Vomiting sulfamethoxazole [From Bactrim] Adverse Reaction (Mild, Verified 04/30/20 22:40) Vomiting trimethoprim [From Bactrim] Adverse Reaction (Mild, Verified 04/30/20 22:40) Vomiting Home Medications: Cetirizine HCl [Allergy Relief] 10 mg PO DAILY 01/09/23 [History] Diclofenac Sodium 75 mg PO DAILY 01/09/23 [History] Dicyclomine HCl 10 mg PO DAILY 01/09/23 [History] Hx Tetanus, Diphtheria Vaccination/Date Given: No Hx Influenza Vaccination/Date Given: No Hx Pneumococcal Vaccination/Date Given: No Travel Risk - International Travel Have you traveled outside of the country in past 3 weeks: No - Coronavirus Screening Are you exhibiting any of the following symptoms?: No Close contact with a COVID-19 positive Pt in past 14-21 Days: No - Review of Systems Constitutional: No Symptoms Eyes: No Symptoms Ears, Nose, & Throat: No Symptoms Respiratory: No Symptoms Cardiac: No Symptoms Abdominal/Gastrointestinal: No Symptoms Genitourinary Symptoms: No Symptoms Musculoskeletal: No Symptoms Skin: No Symptoms Neurological: No Symptoms Psychological: No Symptoms Endocrine: No Symptoms Hematologic/Lymphatic: No Symptoms Immunological/Allergic: No Symptoms All Other Systems: Reviewed and Negative - Past Medical History Pertinent Past Medical History: Yes Neurological History: No Pertinent History ENT History: No Pertinent History Cardiac History: No Pertinent History Respiratory History: No Pertinent History Endocrine Medical History: No Pertinent History Musculoskeletal History: No Pertinent History GI Medical History: No Pertinent History History: No Pertinent History Psycho-Social History: Anxiety, Depression, Other Female Reproductive Disorders: No Pertinent History Other Medical History: ocd - Past Surgical History Past Surgical History: Yes Neuro Surgical History: No Pertinent History Cardiac: No Pertinent History Respiratory: No Pertinent History Gastrointestinal: No Pertinent History Genitourinary: No Pertinent History Musculoskeletal: No Pertinent History Female Surgical History: Dilation & Curettage, Other Other Surgical History: FIBROID TUMORS, CYST - Social History Smoking Status: Former smoker Exposure to second hand smoke: No Drug Use: none Patient Lives Alone: Yes - Nursing Vital Signs Nursing Vital Signs: Initial Vital Signs Temperature 97.4 F 01/09/23 15:52 Pulse Rate 128 H 01/09/23 15:52 Respiratory Rate 22 01/09/23 15:52 Blood Pressure 165/119 01/09/23 15:52 O2 Sat by Pulse Oximetry 99 01/09/23 15:52 Pain Scale Pain Intensity 0 - Physical Exam General Appearance: no apparent distress, alert, anxiety, obese Eye Exam: PERRL/EOMI, eyes nml inspection Ears, Nose, Throat Exam: normal ENT inspection, moist mucous membranes Neck Exam: normal inspection, non-tender, supple, full range of motion Respiratory Exam: normal breath sounds, lungs clear, airway intact, No chest tenderness, No respiratory distress Cardiovascular Exam: tachycardia Gastrointestinal/Abdomen Exam: soft, normal bowel sounds, No tenderness Pelvic Exam: not done Rectal Exam: not done Back Exam: normal inspection, normal range of motion, No CVA tenderness, No vertebral tenderness Extremity Exam: normal inspection, normal range of motion, pelvis stable Neurologic Exam: alert, oriented x 3, cooperative, beverage sales consultant II-XII nml as tested, normal mood/affect, nml cerebellar function, nml station & gait, sensation nml Skin Exam: normal color, warm, dry Lymphatic Exam: No adenopathy SpO2 Interpretation: normal O2 Delivery: Room Air - Course Nursing assessment & vital signs reviewed: Yes EKG Interpreted by Me: RATE (107), Sinus Tach, NORMAL AXIS, NORMAL INTERVALS, NORMAL QRS, NORMAL ST-T, Other Ordered Tests: Active Orders 24 hr Category Date Time Status Refinery Operator Alkylation STAT Care 01/09/23 16:20 Active EKG-ER Only STAT Care 01/09/23 16:20 Active IV Insertion STAT Care 01/09/23 16:20 Active Pulse Oximetry (ED) STAT Care 01/09/23 16:20 Active CBC W DIFF Stat Lab 01/09/23 16:30 Completed CMP Stat Lab 01/09/23 16:30 Completed D-DIMER QUANTITATIVE Stat Lab 01/09/23 16:30 Completed TROPONIN Q4H Lab 01/09/23 16:30 Completed TROPONIN Q4H Lab 01/09/23 20:30 Ordered TROPONIN Q4H Lab 01/10/23 00:30 Ordered UA W/RFX UR CULTURE Stat Lab 01/09/23 16:23 Completed Lab/Rad Data: Laboratory Result Diagrams 01/09/23 16:30 01/09/23 16:30 Laboratory Results 01/09/23 01/09/23 01/09/23 Range/Units 16:30 16:30 16:30 WBC (4.0-10.5) x10^3/uL RBC (4.1-5.4) x10^6/uL Hgb (12.0-16.0) g/dL Hct (35-47) % MCV (78-100) fL MCH (26-32) pg MCHC (32-36) g/dL RDW (11.5-14.0) % Plt Count (150-450) x10^3/uL MPV (7.5-11.0) fL Gran % (36.0-66.0) % Immature Gran % (Auto) (0.00-0.4) % Nucleat RBC Rel Count (0.00-0.1) % Eos # (Auto) (0-0.5) x10^3/uL Immature Gran # (Auto) (0.00-0.03) x10^3u/L Absolute Lymphs (auto) (1.0-4.6) x10^3/uL Absolute Monos (auto) (0.0-1.3) x10^3/uL Absolute Nucleated RBC (0.00-0.01) x10^3u/L Lymphocytes % (24.0-44.0) % Monocytes % (0.0-12.0) % Eosinophils % (0.00-5.0) % Basophils % (0.0-0.4) % Absolute Granulocytes (1.4-6.9) x10^3/uL Basophils # (0-0.4) x10^3/uL D-Dimer 0.30 (0.0-0.50) mg/L Sodium 141 (137-145) mmol/L Potassium 3.4 L (3.5-5.1) mmol/L Chloride 105 (98-107) mmol/L Carbon Dioxide 23 (22-30) mmol/L Anion Gap 16.7 H (5-15) MEQ/L BUN 22 H (7-17) mg/dL Creatinine 0.85 (0.52-1.04) mg/dL Estimated GFR > 60.0 ML/MIN Glucose 128 H (74-106) mg/dL Calcium 9.3 (8.4-10.2) mg/dL Total Bilirubin 0.60 (0.2-1.3) mg/dL AST 27 (14-36) U/L ALT 26 (0-35) U/L Alkaline Phosphatase 92 (38-126) U/L Troponin I < 0.012 (0.000-0.034) ng/mL Serum Total Protein 7.3 (6.3-8.2) g/dL Albumin 4.4 (3.5-5.0) g/dL Urine Color (Yellow) Urine Appearance (Clear) Urine pH (4.6-8.0) Ur Specific [place] (1.005-1.030) Urine Protein (Negative) Urine Glucose (UA) (Negative) mg/dL Urine Ketones (Negative) Urine Blood (Negative) Urine Nitrite (Negative) Urine Bilirubin (Negative) Urine Urobilinogen (0.2) mg/dL Ur Leukocyte Esterase (Negative) U Hyaline Cast (Auto) (0-2) /LPF Urine Microscopic RBC (0-5) /HPF Urine Microscopic WBC (0-5) /HPF Ur Epithelial Cells (None Seen) /HPF Urine Bacteria (None Seen) /HPF Urine Culture Reflexed (NO) 01/09/23 01/09/23 Range/Units 16:30 16:23 WBC 8.7 (4.0-10.5) x10^3/uL RBC 4.61 (4.1-5.4) x10^6/uL Hgb 13.7 (12.0-16.0) g/dL Hct 42.5 (35-47) % MCV 92.2 (78-100) fL MCH 29.7 (26-32) pg MCHC 32.2 (32-36) g/dL RDW 12.7 (11.5-14.0) % Plt Count 269 (150-450) x10^3/uL MPV 12.2 H (7.5-11.0) fL Gran % 61.3 (36.0-66.0) % Immature Gran % (Auto) 0.5 H (0.00-0.4) % Nucleat RBC Rel Count 0.0 (0.00-0.1) % Eos # (Auto) 0.19 (0-0.5) x10^3/uL Immature Gran # (Auto) 0.04 H (0.00-0.03) x10^3u/L Absolute Lymphs (auto) 2.70 (1.0-4.6) x10^3/uL Absolute Monos (auto) 0.37 (0.0-1.3) x10^3/uL Absolute Nucleated RBC 0.00 (0.00-0.01) x10^3u/L Lymphocytes % 31.2 (24.0-44.0) % Monocytes % 4.3 (0.0-12.0) % Eosinophils % 2.2 (0.00-5.0) % Basophils % 0.5 (0.0-0.4) % Absolute Granulocytes 5.32 (1.4-6.9) x10^3/uL Basophils # 0.04 (0-0.4) x10^3/uL D-Dimer (0.0-0.50) mg/L Sodium (137-145) mmol/L Potassium (3.5-5.1) mmol/L Chloride (98-107) mmol/L Carbon Dioxide (22-30) mmol/L Anion Gap (5-15) MEQ/L BUN (7-17) mg/dL Creatinine (0.52-1.04) mg/dL Estimated GFR ML/MIN Glucose (74-106) mg/dL Calcium (8.4-10.2) mg/dL Total Bilirubin (0.2-1.3) mg/dL AST (14-36) U/L ALT (0-35) U/L Alkaline Phosphatase (38-126) U/L Troponin I (0.000-0.034) ng/mL Serum Total Protein (6.3-8.2) g/dL Albumin (3.5-5.0) g/dL Urine Color Yellow (Yellow) Urine Appearance Cloudy A (Clear) Urine pH 5.5 (4.6-8.0) Ur Specific [place] >=1.030 A (1.005-1.030) Urine Protein Trace A (Negative) Urine Glucose (UA) Negative (Negative) mg/dL Urine Ketones Trace A (Negative) Urine Blood Negative (Negative) Urine Nitrite Negative (Negative) Urine Bilirubin Negative (Negative) Urine Urobilinogen 0.2 (0.2) mg/dL Ur Leukocyte Esterase Negative (Negative) U Hyaline Cast (Auto) 3-5 A (0-2) /LPF Urine Microscopic RBC 0-2 (0-5) /HPF Urine Microscopic WBC 0-2 (0-5) /HPF Ur Epithelial Cells Many A (None Seen) /HPF Urine Bacteria Few A (None Seen) /HPF Urine Culture Reflexed NO (NO) - Progress Progress: improved Progress Note: 01/09/23 17:50 This patient's medical issue is 1 of moderate complexity. Level of complexity in the work-up performed is based on review of the patient's past medical history, review the patient's medication list, review of the patient's drug allergy list, history present illness and physical findings on examination. The work-up in this patient includes a twelve-lead EKG, urinalysis, CBC, CMP, troponin level and twelve-lead EKG. I reviewed the results of these studies and interpreted the twelve-lead EKG. At the time of discharge, the patient's heart rate is in the 70s and a normal sinus rhythm and the systolic blood pressure is 116. She has no chest pain. The work-up is negative for any acute, emergent medical issue. Patient be discharged home. Counseled pt/family regarding: lab results, diagnosis, need for follow-up Medical Desision Making - Risk of complications Minimal Risk: Minimal risk of morbidity - Departure Departure Disposition: Extended Care Facility Clinical Impression: Anxiety about health, Stress, Normotensive Condition: Stable Critical Care Time: No Referrals: DEEP WALLS, CREDIT CLERK [Primary Care Provider] - Follow up/PCP as directed Additional Instructions: Take your current medication as prescribed. Call nurse practitioner Mayra Walls tomorrow, 01/10/2023, in the morning to make arrangements for further evaluation management.
[2023-01-09 16:02] VITALS: TEMP 97.4
[2023-01-09 16:27] VITALS: O2SAT 98
[2023-01-09 16:53] LABS: Absolute Neutrophil Ct (ANC) 5.32 x10^3/uL (1.4-6.9); BASOPHIL % 0.5 % (0.0-0.4); Basophil (Absolute #) 0.04 x10^3/uL (0-0.4); Eosinophil % 2.2 % (0.00-5.0); Eosinophil (Absolute #) 0.19 x10^3/uL (0-0.5); Hematocrit 42.5 % (35-47); Hemoglobin 13.7 g/dL (12.0-16.0); IMMATURE GRAN # 0.04 x10^3u/L (0.00-0.03); IMMATURE GRAN % 0.5 % (0.00-0.4); Lymphocytes % 31.2 % (24.0-44.0); Mean Cell Volume 92.2 fL (78-100); Mean Corpuscular Hemoglobin 29.7 pg (26-32); Mean Corpuscular Hgb Concent. 32.2 g/dL (32-36); Mean Platelet Volume 12.2 fL (7.5-11.0); Monocyte (Absolute #) 0.37 x10^3/uL (0.0-1.3); Monocytes % 4.3 % (0.0-12.0); Neutrophil % 61.3 % (36.0-66.0); Platelet Count 269 x10^3/uL (150-450); Red Blood Count 4.61 x10^6/uL (4.1-5.4); Red Cell Distribution Width 12.7 % (11.5-14.0); White Blood Count 8.7 x10^3/uL (4.0-10.5)
[2023-01-09 17:09] LABS: Appearance Cloudy (Clear); Bacteria Few /HPF (None Seen); Bilirubin Negative (Negative); Blood Negative (Negative); Epithelial Cells Many /HPF (None Seen); Glucose, Urine Negative (Negative); Ketones Trace (Negative); Leukocyte Esterase Negative (Negative); Nitrite Negative (Negative); Ph 5.5 (4.6-8.0); Protein,Urine Dip Trace (Negative); RBC 0-2 /HPF (0-5); Specific Gravity >=1.030 (1.005-1.030); Urobilinogen 0.2 mg/dL (0.2); WBC 0-2 /HPF (0-5)
[2023-01-09 17:10] LABS: ALBUMIN 4.4 g/dL (3.5-5.0); ALKALINE PHOSPHATASE 92 U/L (38-126); ANION GAP 16.7 MEQ/L (5-15); BLOOD UREA NITROGEN 22 mg/dL (7-17); CHLORIDE 105 mmol/L (98-107); Calcium 9.3 mg/dL (8.4-10.2); Carbon Dioxide 23 mmol/L (22-30); Creatinine 1 0.85 mg/dL (0.52-1.04); EST GLOMERULAR FILTRATION RATE > 60.0 ML/MIN; Glucose 128 mg/dL (74-106); Potassium 3.4 mmol/L (3.5-5.1); SGOT/AST 27 U/L (14-36); SGPT/ALT 26 U/L (0-35); SODIUM 141 mmol/L (137-145); Total Protein 7.3 g/dL (6.3-8.2)
[2023-01-09 17:22] LABS: ADD URINE CULTURE? NO (NO)
[2023-01-09 18:03] VITALS: BP 116/74; PULSE 76; RESP 16
== END 2023-01-09 18:06 | disposition home or self-care (01) ==
LOC: ED 15:44
DX: F45.9 Somatoform disorder, unspecified (principal); F43.9 Reaction to severe stress, unspecified; R03.0 Elevated blood-pressure reading, without diagnosis of hypertension; Z56.1 Change of job; Z63.4 Disappearance and death of family member; Z79.899 Other long term (current) drug therapy
CPT/HCPCS: 36415; 80053; 81001; 84484; 85025; 85379; 93005; 93041; 94760; 99283

== ENCOUNTER 2023-06-11 14:19 | Emergency (ER) | payer MEDICAID ==
[2023-06-11 14:30] VITALS: RESP 20
[2023-06-11] MEDS ORDERED: solu-MEDROL 125 MG, Sterile H2O 10 ml 2 ML IM ONE ×2 (15:01)
[2023-06-11] MEDS ORDERED: Pepcid 20 MG PO ONE (15:01)
[2023-06-11] MEDS ORDERED: solu-MEDROL ONE (15:06)
[2023-06-11] MEDS ORDERED: Pepcid 20 MG ONE (15:06)
[2023-06-11] MEDS ORDERED: Sterile H2O 10 ml IJ ONE (15:06)
--- NOTE | 2023-06-11 15:10 | ERPHSYRPT ---
- History of Present Illness Time Seen by Provider: 06/11/23 14:40 Source: patient Exam Limitations: no limitations Patient Subjective Stated Complaint: Pt states "I got a dog 6 months ago and then we went to [place] and I just got back and for the past month, my eyes are puffy, my nose is congested and it all started when we were in the hotel in [place] which was a pet hotel room." Triage Nursing Assessment: Pt presented alert and oriented X 3, skin pwd. Pt ambulates with an upright steady gait, able to speak in clear full sentences. PT in no apparent distress. 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 In addition, the patient also brought a new dog 6 months ago. Patient is here today because of nasal congestion, tearing, runny nose and allergy type symptoms. Patient has a history of seasonal allergies but in the last several days her symptoms are much worse. She is using topical hydrocortisone and triple antibiotic ointment around her eyes where there was a rash. She is taking Benadryl and Pepcid. She has no chest pain. She has no shortness of breath. She denies wheezing. Timing/Duration: day(s), worse Severity: mild (To moderate) Associated Symptoms: No shortness of breath, No cough, No chest pain Allergies/Adverse Reactions: ciprofloxacin [From Cipro] Adverse Reaction (Mild, Verified 04/30/20 22:40) Vomiting Sulfa (Sulfonamide Antibiotics) Adverse Reaction (Mild, Verified 04/30/20 22:40) Vomiting sulfamethoxazole [From Bactrim] Adverse Reaction (Mild, Verified 04/30/20 22:40) Vomiting trimethoprim [From Bactrim] Adverse Reaction (Mild, Verified 04/30/20 22:40) Vomiting Home Medications: Cetirizine HCl [Allergy Relief] 10 mg PO DAILY 01/09/23 [History] Diclofenac Sodium 75 mg PO BID 01/09/23 [History] Dicyclomine HCl 10 mg PO DAILY 01/09/23 [History] Hx Tetanus, Diphtheria Vaccination/Date Given: No Hx Influenza Vaccination/Date Given: No Hx Pneumococcal Vaccination/Date Given: No Immunizations Up to Date: No Travel Risk - International Travel Have you traveled outside of the country in past 3 weeks: No - Coronavirus Screening Are you exhibiting any of the following symptoms?: No Close contact with a COVID-19 positive Pt in past 14-21 Days: No - Vaccine Status Have you recieved a Covid-19 vaccination: No 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 - Vaccination Dates Date of 2cond Vaccination (if applicable): unknown - Review of Systems Constitutional: No Symptoms Eyes: Itchy (Around her eyes intermittently), Tearing (Intermittently) Ears, Nose, & Throat: Nose Discharge (Minimally clear) Respiratory: No Symptoms Cardiac: No Symptoms Abdominal/Gastrointestinal: No Symptoms Genitourinary Symptoms: No Symptoms Musculoskeletal: No Symptoms Skin: No Symptoms Neurological: No Symptoms Psychological: No Symptoms Endocrine: No Symptoms Hematologic/Lymphatic: No Symptoms Immunological/Allergic: No Symptoms All Other Systems: Reviewed and Negative - Past Medical History Pertinent Past Medical History: Yes Neurological History: No Pertinent History ENT History: No Pertinent History Cardiac History: No Pertinent History Respiratory History: No Pertinent History Endocrine Medical History: No Pertinent History Musculoskeletal History: No Pertinent History GI Medical History: No Pertinent History History: No Pertinent History Psycho-Social History: Anxiety, Depression, Other Female Reproductive Disorders: No Pertinent History Other Medical History: ocd - Past Surgical History Past Surgical History: Yes Neuro Surgical History: No Pertinent History Cardiac: No Pertinent History Respiratory: No Pertinent History Gastrointestinal: No Pertinent History Genitourinary: No Pertinent History Musculoskeletal: No Pertinent History Female Surgical History: Dilation & Curettage, Other Other Surgical History: FIBROID TUMORS, CYST - Social History Smoking Status: Former smoker Exposure to second hand smoke: No Drug Use: none Patient Lives Alone: Yes - Female History Hx Last Menstrual Period: menopause Hx Now: No - Nursing Vital Signs Nursing Vital Signs: Initial Vital Signs Temperature 97.1 F 06/11/23 14:25 Pulse Rate 99 H 06/11/23 14:25 Respiratory Rate 20 06/11/23 14:25 Blood Pressure 157/109 06/11/23 14:25 O2 Sat by Pulse Oximetry 96 06/11/23 14:25 Pain Scale Pain Intensity 2 - Physical Exam General Appearance: no apparent distress, alert, anxiety Eye Exam: PERRL/EOMI, eyes nml inspection Ears, Nose, Throat Exam: normal ENT inspection, moist mucous membranes Neck Exam: normal inspection, non-tender, supple, full range of motion Respiratory Exam: normal breath sounds, lungs clear, airway intact, No chest tenderness, No respiratory distress Cardiovascular Exam: regular rate/rhythm, normal heart sounds, normal peripheral pulses Gastrointestinal/Abdomen Exam: soft, normal bowel sounds, No tenderness Pelvic Exam: not done Rectal Exam: not done Back Exam: normal inspection, normal range of motion, No CVA tenderness, No vertebral tenderness Extremity Exam: normal inspection, normal range of motion, pelvis stable Neurologic Exam: alert, oriented x 3, cooperative, 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 as tested, nml cerebellar function, nml station & gait, sensation nml Skin Exam: normal color, warm, dry, No rash Lymphatic Exam: No adenopathy SpO2 Interpretation: normal SpO2: 96 O2 Delivery: Room Air - Course Nursing assessment & vital signs reviewed: Yes Ordered Tests: Medication Summary Discontinued Medications Generic Name Dose Route Start Last Admin Trade Name Freq PRN Reason Stop Dose Admin Methylprednisolone Sodium 0 mg 06/11/23 15:01 Succinate 125 mg/ Sterile IM 06/11/23 15:02 Water 2 ml STAT ONE Famotidine 20 mg 06/11/23 15:01 Famotidine 20 Mg Tablet PO 06/11/23 15:02 STAT ONE - Progress Progress: unchanged Progress Note: 06/11/23 15:08 Patient's medical issue is of low complexity. The level of complexity in the workup performed is based on review of the patient's past medical history, review of the patient's medication list, review patient drug allergy list, history present illness and physical findings on examination. No laboratory radiographic studies are necessary in this patient. Will provide the patient wi th an intramuscular dose of Solu-Medrol plus an additional dose of 20 mg of Pepcid orally. Patient took 50 mg of Benadryl orally at 1030 this morning. Counseled pt/family regarding: diagnosis, need for follow-up Medical Desision Making - Diagnostic Testing Diagnostic test were ordered, analyzed, and reviewed by me: No - Risk of complications The pt has a mod risk of morbidity or mortality based on: Need for prescription drug management - Departure Departure Disposition: Home Clinical Impression: Seasonal allergic rhinitis Condition: Stable Critical Care Time: No Referrals: DEEP BACA NP [Primary Care Provider] - Follow up/PCP as directed Additional Instructions: Continue your Benadryl 50 mg orally 3 times a day as discussed for the next 5 days. Continue your famotidine 20 mg orally twice a day for the next 5 days. Call your primary care provider today, 06/11/2023, to make arranges for follow-up appointment for the next 5 to 7 days. Make sure you discuss with your provider the possibility of exposure to mold. You may stop your topical steroid as discussed. Take your new steroid prescription as prescribed. Prescriptions: Prednisone 10 mg [Deltasone 10 mg] 10 mg PO TID #12 tablet
[2023-06-11 15:35] VITALS: BP 148/103; PULSE 92; TEMP 97.2; O2SAT 98
== END 2023-06-11 15:39 | disposition home or self-care (01) ==
LOC: ED 14:19
DX: J30.2 Other seasonal allergic rhinitis (principal); R09.81 Nasal congestion; Z79.52 Long term (current) use of systemic steroids; Z79.899 Other long term (current) drug therapy
CPT/HCPCS: 96372; 99283; J2930; A9270-GY

== ENCOUNTER 2024-02-23 08:31 | Emergency (ER) | payer OTHER ==
--- NOTE | 2024-02-23 08:40 | ERPHSYRPT ---
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 Patient was in [place] working when she first noticed the coughing episodes. It is worsened over the last 2 to 3 months. It is especially worse in the last week. Patient is not exposed to any type of smoke inhalation. She herself does not smoke. Patient denies fever. Patient denies chest pain. She has no abdominal pain. She has no vomiting or diarrhea symptoms. Patient does have a history anxiety and depression. Patient states she does have a history of bronchitis in the past. Patient denies hemoptysis. Patient denies leg pain. Timing/Duration: intermittent (Over the last few months), worse (Worsening symptoms in the last week) Cough Quality/Degree: moderate, dry cough Possible Cause: occasional episodes Modifying Factors: Improves With: coughing Associated Symptoms: cough Allergies/Adverse Reactions: ciprofloxacin [From Cipro] Adverse Reaction (Mild, Verified 02/23/24 08:39) Vomiting Sulfa (Sulfonamide Antibiotics) Adverse Reaction (Mild, Verified 02/23/24 08:39) Vomiting sulfamethoxazole [From Bactrim] Adverse Reaction (Mild, Verified 02/23/24 08:39) Vomiting trimethoprim [From Bactrim] Adverse Reaction (Mild, Verified 02/23/24 08:39) Vomiting Home Medications: Cetirizine HCl [Allergy Relief] 10 mg PO DAILY 01/09/23 [History] Dicyclomine HCl 10 mg PO QID 01/09/23 [History] Fluticasone Propionate 1 spray INTRANASAL DAILY 02/23/24 [History] Hx Tetanus, Diphtheria Vaccination/Date Given: No Hx Influenza Vaccination/Date Given: No Hx Pneumococcal Vaccination/Date Given: No Travel Risk - International Travel Have you traveled outside of the country in past 3 weeks: Yes - Emerging Infectious Disease Are you exhibiting symptoms associated with any current EIDs: Yes Symptoms: Cough: New Onset - Review of Systems Constitutional: No Symptoms Eyes: No Symptoms Ears, Nose, & Throat: No Symptoms Respiratory: Cough Cardiac: No Symptoms Abdominal/Gastrointestinal: No Symptoms Genitourinary Symptoms: No Symptoms Musculoskeletal: No Symptoms Skin: No Symptoms Neurological: No Symptoms Psychological: No Symptoms Endocrine: No Symptoms Hematologic/Lymphatic: No Symptoms Immunological/Allergic: No Symptoms All Other Systems: Reviewed and Negative - Past Medical History Pertinent Past Medical History: Yes Neurological History: No Pertinent History ENT History: No Pertinent History Cardiac History: No Pertinent History Respiratory History: No Pertinent History Endocrine Medical History: No Pertinent History Musculoskeletal History: No Pertinent History GI Medical History: No Pertinent History History: No Pertinent History Psycho-Social History: Anxiety, Depression, Other Female Reproductive Disorders: No Pertinent History Other Medical History: ocd. anemia - Past Surgical History Past Surgical History: Yes Neuro Surgical History: No Pertinent History Cardiac: No Pertinent History Respiratory: No Pertinent History Gastrointestinal: No Pertinent History Genitourinary: No Pertinent History Musculoskeletal: No Pertinent History Female Surgical History: Dilation & Curettage, Other Other Surgical History: FIBROID TUMORS, CYST - Social History Smoking Status: Former smoker Exposure to second hand smoke: No Drug Use: none Patient Lives Alone: Yes - Nursing Vital Signs Nursing Vital Signs: Initial Vital Signs Temperature 96.9 F 02/23/24 08:32 Pulse Rate 86 02/23/24 08:32 Respiratory Rate 20 02/23/24 08:32 Blood Pressure 123/97 02/23/24 08:32 O2 Sat by Pulse Oximetry 99 02/23/24 08:32 Pain Scale Pain Intensity 0 - Physical Exam General Appearance: no apparent distress, alert, anxiety, obese Eye Exam: PERRL/EOMI, eyes nml inspection Ears, Nose, Throat Exam: normal ENT inspection, moist mucous membranes Neck Exam: normal inspection, non-tender, supple, full range of motion Respiratory Exam: normal breath sounds, lungs clear, airway intact, No chest tenderness, No respiratory distress Cardiovascular Exam: regular rate/rhythm, normal heart sounds, normal peripheral pulses Gastrointestinal/Abdomen Exam: soft, normal bowel sounds, No tenderness Pelvic Exam: not done Rectal Exam: not done Back Exam: normal inspection, normal range of motion, No CVA tenderness, No vertebral tenderness Extremity Exam: normal inspection, normal range of motion, pelvis stable Neurologic Exam: alert, oriented x 3, cooperative, 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 tested, nml cerebellar function, nml station & gait, sensation nml Skin Exam: normal color, warm, dry Lymphatic Exam: No adenopathy SpO2 Interpretation: normal O2 Delivery: Room Air - Course Nursing assessment & vital signs reviewed: Yes EKG Interpreted by Me: RATE (96), Sinus Rhythm, NORMAL AXIS, NORMAL INTERVALS, NORMAL QRS, NORMAL ST-T, Other (No acute ischemia.) Ordered Tests: Active Orders 24 hr Category Date Time Status Strategic Advisor STAT Care 02/23/24 09:38 Active EKG-ER Only STAT Care 02/23/24 09:38 Active IV Insertion STAT Care 02/23/24 09:38 Active CHEST 1 VIEW (PORTABLE) Stat Exams 02/23/24 09:09 Completed CBC W DIFF Stat Lab 02/23/24 09:50 Completed CMP Stat Lab 02/23/24 09:50 Completed D-DIMER QUANTITATIVE Stat Lab 02/23/24 09:45 Completed MONO SCREEN Stat Lab 02/23/24 09:50 Completed TROPONIN Q4H Lab 02/23/24 09:50 Completed TROPONIN Q4H Lab 02/23/24 13:45 Ordered TROPONIN Q4H Lab 02/23/24 17:45 Ordered Medication Summary Generic Name Dose Route Start Last Admin Trade Name Freq PRN Reason Stop Dose Admin Ceftriaxone Sodium 1 gm in 100 mls @ 200 mls/hr 02/23/24 10:30 Rocephin 1 Gm / 100 Ml Nacl IV 02/23/24 10:59 STAT ONE Discontinued Medications Generic Name Dose Route Start Last Admin Trade Name Freq PRN Reason Stop Dose Admin Methylprednisolone Sodium 0 mg 02/23/24 10:30 Succinate 125 mg/ Sterile IV 02/23/24 10:31 Water 2 ml STAT ONE Lab/Rad Data: Laboratory Result Diagrams 02/23/24 09:50 02/23/24 09:50 Laboratory Results 02/23/24 02/23/24 02/23/24 Range/Units 09:50 09:50 09:50 WBC (3.98-10.04) x10^3/uL RBC (3.93-5.22) x10^6/uL Hgb (11.2-15.7) g/dL Hct (34.1-44.9) % MCV (79.4-94.8) fL MCH (25.6-32.2) pg MCHC (32.2-35.5) g/dL RDW (11.7-14.4) % Plt Count (182-369) x10^3/uL MPV (9.4-12.3) fL Gran % (34.0-71.1) % Immature Gran % (Auto) (0.001-0.429) % Nucleat RBC Rel Count (0.00-0.2) % Eos # (Auto) (0.04-0.36) x10^3/uL Immature Gran # (Auto) (0.001-0.031) x10^3u/L Absolute Lymphs (auto) (1.18-3.74) x10^3/uL Absolute Monos (auto) (0.24-0.86) x10^3/uL Absolute Nucleated RBC (0.00-0.012) x10^3u/L Lymphocytes % (19.3-51.7) % Monocytes % (4.7-12.5) % Eosinophils % (0.7-5.8) % Basophils % (0.1-1.2) % Absolute Granulocytes (1.56-6.13) x10^3/uL Basophils # (0.01-0.08) x10^3/uL D-Dimer (0.0-0.50) mg/L Sodium 139 (135-145) mmol/L Potassium 4.1 (3.5-5.1) mmol/L Chloride 102 (98-107) mmol/L Carbon Dioxide 28 (22-30) mmol/L Anion Gap 12.9 (5-15) MEQ/L BUN 15 (7-17) mg/dL Creatinine 0.98 (0.52-1.04) mg/dL Estimated GFR 70.8 ML/MIN Glucose 115 H (74-106) mg/dL Calcium 9.6 (8.4-10.2) mg/dL Total Bilirubin 0.80 (0.2-1.3) mg/dL AST 28 (14-36) U/L ALT 30 (0-35) U/L Alkaline Phosphatase 105 (38-126) U/L Troponin I < 0.012 (0.000-0.033) ng/mL Serum Total Protein 7.7 (6.3-8.2) g/dL Albumin 4.5 (3.5-5.0) g/dL Monoscreen NEGATIVE (NEGATIVE) Influenza Type A Ag (NEGATIVE) Influenza Type B Ag (NEGATIVE) RSV (PCR) (NEGATIVE) SARS-CoV-2 (PCR) (NEGATIVE) Group A Strep Antibody (NEGATIVE) 02/23/24 02/23/24 02/23/24 Range/Units 09:50 09:45 09:16 WBC 5.6 (3.98-10.04) x10^3/uL RBC 4.84 (3.93-5.22) x10^6/uL Hgb 14.8 (11.2-15.7) g/dL Hct 44.3 (34.1-44.9) % MCV 91.5 (79.4-94.8) fL MCH 30.6 (25.6-32.2) pg MCHC 33.4 (32.2-35.5) g/dL RDW 12.9 (11.7-14.4) % Plt Count 212 (182-369) x10^3/uL MPV 11.2 (9.4-12.3) fL Gran % 71.0 (34.0-71.1) % Immature Gran % (Auto) 0.4 (0.001-0.429) % Nucleat RBC Rel Count 0.0 (0.00-0.2) % Eos # (Auto) 0.12 (0.04-0.36) x10^3/uL Immature Gran # (Auto) 0.02 (0.001-0.031) x10^3u/L Absolute Lymphs (auto) 1.05 L (1.18-3.74) x10^3/uL Absolute Monos (auto) 0.39 (0.24-0.86) x10^3/uL Absolute Nucleated RBC 0.00 (0.00-0.012) x10^3u/L Lymphocytes % 18.9 L (19.3-51.7) % Monocytes % 7.0 (4.7-12.5) % Eosinophils % 2.2 (0.7-5.8) % Basophils % 0.5 (0.1-1.2) % Absolute Granulocytes 3.96 (1.56-6.13) x10^3/uL Basophils # 0.03 (0.01-0.08) x10^3/uL D-Dimer 0.38 (0.0-0.50) mg/L Sodium (135-145) mmol/L Potassium (3.5-5.1) mmol/L Chloride (98-107) mmol/L Carbon Dioxide (22-30) mmol/L Anion Gap (5-15) MEQ/L BUN (7-17) mg/dL Creatinine (0.52-1.04) mg/dL Estimated GFR ML/MIN Glucose (74-106) mg/dL Calcium (8.4-10.2) mg/dL Total Bilirubin (0.2-1.3) mg/dL AST (14-36) U/L ALT (0-35) U/L Alkaline Phosphatase (38-126) U/L Troponin I (0.000-0.033) ng/mL Serum Total Protein (6.3-8.2) g/dL Albumin (3.5-5.0) g/dL Monoscreen (NEGATIVE) Influenza Type A Ag NEGATIVE (NEGATIVE) Influenza Type B Ag NEGATIVE (NEGATIVE) RSV (PCR) NEGATIVE (NEGATIVE) SARS-CoV-2 (PCR) NEGATIVE (NEGATIVE) Group A Strep Antibody (NEGATIVE) 02/23/24 Range/Units 09:16 WBC (3.98-10.04) x10^3/uL RBC (3.93-5.22) x10^6/uL Hgb (11.2-15.7) g/dL Hct (34.1-44.9) % MCV (79.4-94.8) fL MCH (25.6-32.2) pg MCHC (32.2-35.5) g/dL RDW (11.7-14.4) % Plt Count (182-369) x10^3/uL MPV (9.4-12.3) fL Gran % (34.0-71.1) % Immature Gran % (Auto) (0.001-0.429) % Nucleat RBC Rel Count (0.00-0.2) % Eos # (Auto) (0.04-0.36) x10^3/uL Immature Gran # (Auto) (0.001-0.031) x10^3u/L Absolute Lymphs (auto) (1.18-3.74) x10^3/uL Absolute Monos (auto) (0.24-0.86) x10^3/uL Absolute Nucleated RBC (0.00-0.012) x10^3u/L Lymphocytes % (19.3-51.7) % Monocytes % (4.7-12.5) % Eosinophils % (0.7-5.8) % Basophils % (0.1-1.2) % Absolute Granulocytes (1.56-6.13) x10^3/uL Basophils # (0.01-0.08) x10^3/uL D-Dimer (0.0-0.50) mg/L Sodium (135-145) mmol/L Potassium (3.5-5.1) mmol/L Chloride (98-107) mmol/L Carbon Dioxide (22-30) mmol/L Anion Gap (5-15) MEQ/L BUN (7-17) mg/dL Creatinine (0.52-1.04) mg/dL Estimated GFR ML/MIN Glucose (74-106) mg/dL Calcium (8.4-10.2) mg/dL Total Bilirubin (0.2-1.3) mg/dL AST (14-36) U/L ALT (0-35) U/L Alkaline Phosphatase (38-126) U/L Troponin I (0.000-0.033) ng/mL Serum Total Protein (6.3-8.2) g/dL Albumin (3.5-5.0) g/dL Monoscreen (NEGATIVE) Influenza Type A Ag (NEGATIVE) Influenza Type B Ag (NEGATIVE) RSV (PCR) (NEGATIVE) SARS-CoV-2 (PCR) (NEGATIVE) Group A Strep Antibody NOT DETECTED (NEGATIVE) - Progress Progress: improved, re-examined Air Movement: good Progress Note: 02/23/24 09:40 My medical decision making of the assignment of moderate complexity to this patient's medical issue today is based on review of the patient's past medical history, review patient medication list, reviewed patient drug allergy list, history present illness and physical findings on examination. The workup in this patient clued placement of intravenous line, twelve-lead EKG, CBC, CMP, D- dimer level, troponin level, twelve-lead EKG, chest x-ray, viral swabs, monotest and group a strep. Differential diagnosis includes but is not limited to bronchitis, upper respiratory infection, pneumonia, pulmonary embolus, viral illness 02/23/24 10:29 I interpreted the patient's laboratory data results. The D-dimer is still pending. The remainder of the laboratory data workup results show no acute or emergent medical issue. The chest x-ray was interpreted by the radiologist and I reviewed the imp ression. The impression states normal chest x-ray. 02/23/24 10:46 The D-dimer is normal. Blood Culture(s) Obtained: No Antibiotics given: Yes Counseled pt/family regarding: lab results, diagnosis, rad results Medical Desision Making - Diagnostic Testing Diagnostic test were ordered, analyzed, and reviewed by me: Yes Radiological Interpretation: Reviewed by me, Teleradiologist Report - Risk of complications The pt has a mod risk of morbidity or mortality based on: Need for prescription drug management - Departure Departure Disposition: Home Clinical Impression: Upper respiratory infection Condition: Stable Critical Care Time: No Referrals: DEEP BACA NP [Primary Care Provider] - Follow up/PCP as directed Additional Instructions: Drink plenty of fluids. Take your medications as prescribed. Avoid exposure to any kind of smoke. Call your primary care provider today, 02/23/2024, to make arranges for follow-up appointment for further evaluation management. Prescriptions: Benzonatate 200 mg PO TID PRN #10 cap PRN Reason: Cough Cefdinir 300 mg PO BID #14 cap Prednisone 10 mg [Deltasone 10 mg] 10 mg PO TID #12 tablet Albuterol 8 gm Mdi Hfa [Ventolin Hfa MDI] 8 gm IH Q4H #1 unit
[2024-02-23 08:56] VITALS: TEMP 96.9
[2024-02-23 09:53] LABS: Absolute Neutrophil Ct (ANC) 3.96 x10^3/uL (1.56-6.13); BASOPHIL % 0.5 % (0.1-1.2); Basophil (Absolute #) 0.03 x10^3/uL (0.01-0.08); Eosinophil % 2.2 % (0.7-5.8); Eosinophil (Absolute #) 0.12 x10^3/uL (0.04-0.36); Hematocrit 44.3 % (34.1-44.9); Hemoglobin 14.8 g/dL (11.2-15.7); IMMATURE GRAN # 0.02 x10^3u/L (0.001-0.031); IMMATURE GRAN % 0.4 % (0.001-0.429); Lymphocyte (Absolute #) 1.05 x10^3/uL (1.18-3.74); Lymphocytes % 18.9 % (19.3-51.7); Mean Cell Volume 91.5 fL (79.4-94.8); Mean Corpuscular Hemoglobin 30.6 pg (25.6-32.2); Mean Corpuscular Hgb Concent. 33.4 g/dL (32.2-35.5); Mean Platelet Volume 11.2 fL (9.4-12.3); Monocyte (Absolute #) 0.39 x10^3/uL (0.24-0.86); Platelet Count 212 x10^3/uL (182-369); Red Blood Count 4.84 x10^6/uL (3.93-5.22); Red Cell Distribution Width 12.9 % (11.7-14.4); White Blood Count 5.6 x10^3/uL (3.98-10.04)
--- NOTE | 2024-02-23 09:59 | XRAY ---
Indication: Cough. Impression: April 30, 2020 Portable chest again demonstrates normal heart, lungs, and bony thorax.
[2024-02-23 10:00] LABS: INFLUENZA A NEGATIVE (NEGATIVE); INFLUENZA B NEGATIVE (NEGATIVE); RESPIRATORY SYNCTIAL VIRUS NEGATIVE (NEGATIVE); SARS-CoV-2 Xpert Express NEGATIVE (NEGATIVE)
[2024-02-23 10:04] VITALS: O2SAT 97
[2024-02-23 10:08] LABS: ALBUMIN 4.5 g/dL (3.5-5.0); ANION GAP 12.9 MEQ/L (5-15); BILIRUBIN,TOTAL 0.8 mg/dL (0.2-1.3); Calcium 9.6 mg/dL (8.4-10.2); Creatinine 1 0.98 mg/dL (0.52-1.04); EST GLOMERULAR FILTRATION RATE 70.8 ML/MIN; Potassium 4.1 mmol/L (3.5-5.1); Total Protein 7.7 g/dL (6.3-8.2)
[2024-02-23] MEDS: ROCEPHIN 1 GM / 100 ML NaCl 1 GM/100 ML IVPB IV ONE (11:16)
[2024-02-23] MEDS: solu-MEDROL 125 MG, Sterile H2O 10 ml 2 ML IV ONE (11:17)
[2024-02-23 11:21] VITALS: BP 153/110; PULSE 77; RESP 17
[2024-02-23] MEDS ORDERED: XYLOCAINE 1% HCL 20 ML MDV ONE (11:22)
[2024-02-23] MEDS ORDERED: Sterile H2O 10 ml IJ ONE (11:22)
[2024-02-23] MEDS ORDERED: Rocephin 1000 MG INJ ONE (11:22)
[2024-02-23] MEDS ORDERED: solu-MEDROL ONE (11:22)
[2024-02-23] MEDS: Rocephin 1000 MG INJ IM ONE (11:27)
[2024-02-23] MEDS: solu-MEDROL 125 MG, Sterile H2O 10 ml 2 ML IM ONE (11:28)
== END 2024-02-23 11:43 | disposition home or self-care (01) ==
LOC: ED 08:31
DX: J06.9 Acute upper respiratory infection, unspecified (principal); R05.2 Subacute cough; Z79.52 Long term (current) use of systemic steroids; Z79.899 Other long term (current) drug therapy
CPT/HCPCS: 0241U; 36415; 71045; 80053; 84484; 85025; 85379; 86308; 87651; 93005; 93041; 96372; 99284; J0696; J2919

== ENCOUNTER 2024-08-12 17:51 | Emergency (ER) | payer OTHER ==
[2024-08-12 20:06] VITALS: TEMP 100.1; O2SAT 96
[2024-08-12 20:42] LABS: Group A Strep NOT DETECTED (NEGATIVE)
[2024-08-12 20:53] LABS: INFLUENZA B NEGATIVE (NEGATIVE); RESPIRATORY SYNCTIAL VIRUS NEGATIVE (NEGATIVE); SARS-CoV-2 Xpert Express NEGATIVE (NEGATIVE)
[2024-08-12 21:04] LABS: INFLUENZA A POSITIVE (NEGATIVE)
[2024-08-12] MEDS ORDERED: TORAdol 30 mg Injection ONE (21:16)
[2024-08-12] MEDS ORDERED: Tamiflu 75MG Capsule PO ONE (21:17)
[2024-08-12] MEDS ORDERED: HYDROCODONE-ACETAMIN 2.5-108/5 ML SOLUTION ONE (21:17)
[2024-08-12] MEDS: Tamiflu 75MG Capsule PO ONE (21:18)
[2024-08-12] MEDS: HYDROCODONE-ACETAMIN 2.5-108/5 ML SOLUTION PO STA (21:18)
[2024-08-12] MEDS: TORAdol 30 mg Injection IM ONE (21:18)
--- NOTE | 2024-08-12 21:27 | ERPHSYRPT ---
- History of Present Illness Time Seen by Provider: 08/12/24 18:12 Source: patient Exam Limitations: no limitations Patient Subjective Stated Complaint: pt states that she woke up yesterday morning with a sorethroat. pt states she now bodyaches, cough, sorethroat, rt ear pain Triage Nursing Assessment: pt ambulated into the er; pt is axo x4; c/o sorethroat; pt states 10/10 bodyaches; pt throat pink and moist, no excudate present; no redness or swelling present to rt ear; skin pink, dry, hot; temp of 100.1; dry hacking cough present; hypertensive; tachycardic Physician History: 49 years old female with history of irritable bowel syndrome, arthritis presented in the ER with flulike symptoms since yesterday. Patient reports she is having sinus/nasal congestion, headache, sore throat, nonproductive cough and hurts all over body. Low-grade temperature. Has been taking Tylenol ibuprofen with no complete resolution of symptoms. No difficulty breathing. Allergies/Adverse Reactions: ciprofloxacin [From Cipro] Adverse Reaction (Mild, Verified 08/12/24 19:40) Vomiting Sulfa (Sulfonamide Antibiotics) Adverse Reaction (Mild, Verified 08/12/24 19:40) Vomiting sulfamethoxazole [From Bactrim] Adverse Reaction (Mild, Verified 08/12/24 19:40) Vomiting trimethoprim [From Bactrim] Adverse Reaction (Mild, Verified 08/12/24 19:40) Vomiting Home Medications: Cetirizine HCl [Allergy Relief] 10 mg PO DAILY 01/09/23 [History] Dicyclomine HCl 10 mg PO QID 01/09/23 [History] Ascorbic Acid [Vitamin C] 500 mg PO DAILY 08/12/24 [History] Cyanocobalamin (Vitamin B-12) [Vitamin B12] 500 mcg PO DAILY 08/12/24 [History] Diclofenac Sodium 75 mg PO BID 08/12/24 [History] Losartan Potassium 12.5 mg PO DAILY 08/12/24 [History] Metoprolol Succinate 25 mg Xl* [Toprol-Xl 25MG Tablets] 25 mg PO DAILY 08/12/24 [History] hydrOXYzine HCL [Hydroxyzine HCl] 10 mg PO TID PRN 08/12/24 [History] Hx Tetanus, Diphtheria Vaccination/Date Given: Yes Hx Influenza Vaccination/Date Given: Yes Hx Pneumococcal Vaccination/Date Given: No Travel Risk - International Travel Have you traveled outside of the country in past 3 weeks: No - Emerging Infectious Disease Are you exhibiting symptoms associated with any current EIDs: Yes Symptoms: Cough: New Onset, Headaches/Body Aches/, Joint Pain, Vomitting - Review of Systems Constitutional: Fever, Chills, Fatigue, Weakness Eyes: No Symptoms Ears, Nose, & Throat: Nose Congestion, Sinus Drainage Respiratory: Cough Cardiac: No Symptoms Abdominal/Gastrointestinal: Nausea Genitourinary Symptoms: No Symptoms Musculoskeletal: Myalgias Neurological: Headache Hematologic/Lymphatic: No Symptoms - Past Medical History Pertinent Past Medical History: Yes Neurological History: No Pertinent History ENT History: No Pertinent History Cardiac History: No Pertinent History, Hypertension Respiratory History: Pulmonary Embolism Endocrine Medical History: No Pertinent History Musculoskeletal History: Rheumatoid Arthritis GI Medical History: No Pertinent History History: No Pertinent History Psycho-Social History: Anxiety, Depression, Other Female Reproductive Disorders: No Pertinent History Other Medical History: ocd. anemia - Past Surgical History Past Surgical History: Yes Neuro Surgical History: No Pertinent History Cardiac: No Pertinent History Respiratory: No Pertinent History Gastrointestinal: No Pertinent History Genitourinary: No Pertinent History Musculoskeletal: No Pertinent History Female Surgical History: Dilation & Curettage, Other Other Surgical History: FIBROID TUMORS, CYST - Female History Hx Now: No - Social History Smoking Status: Former smoker Exposure to second hand smoke: Yes Drug Use: none - Social Determinants of Health Will the patient participate in the screening: Yes Do you worry about a steady place to live?: No Do you have any problems with any of the following?: No known problems In the past 12 months,have you had to go without utilities?: No Transportation Issues: No Has anyone in your support network made you feel unsafe?: No Have you or anyone in your house had to go w/o enough food: No - Nursing Vital Signs Nursing Vital Signs: Initial Vital Signs Temperature 100.1 F 08/12/24 19:48 Pulse Rate 119 H 08/12/24 19:48 Respiratory Rate 20 08/12/24 19:48 Blood Pressure 159/96 08/12/24 19:48 O2 Sat by Pulse Oximetry 96 08/12/24 19:48 Pain Scale Pain Intensity 10 - Physical Exam General Appearance: no apparent distress Eye Exam: PERRL/EOMI Ears, Nose, Throat Exam: moist mucous membranes, pharyngeal erythema Neck Exam: normal inspection, non-tender, supple, full range of motion Respiratory Exam: normal breath sounds, lungs clear Cardiovascular Exam: normal heart sounds, tachycardia Gastrointestinal/Abdomen Exam: soft, normal bowel sounds, No tenderness Extremity Exam: normal inspection Neurologic Exam: alert, oriented x 3, cooperative, bee robber II-XII nml as tested Skin Exam: normal color SpO2 Interpretation: normal SpO2: 96 O2 Delivery: Room Air Ordered Tests: Medication Summary Discontinued Medications Generic Name Dose Route Start Last Admin Trade Name Freq PRN Reason Stop Dose Admin Hydrocodone Bitart/Acetaminophen 10 ml 08/12/24 21:05 Hydrocodone/Acetaminophen 5 Ml Udcup PO 08/12/24 21:06 STAT STA Hydrocodone Bitart/Acetaminophen Confirm 08/12/24 21:17 Hydrocodone/Acetaminophen 5 Ml Udcup Administered 08/12/24 21:18 Dose 10 ml .ROUTE .STK-MED ONE Ketorolac Tromethamine 30 mg 08/12/24 21:05 Ketorolac Tromethamine 30 Mg/Ml Inj IM 08/12/24 21:06 STAT ONE Ketorolac Tromethamine Confirm 08/12/24 21:16 Ketorolac Tromethamine 30 Mg/Ml Inj Administered 08/12/24 21:17 Dose 30 mg .ROUTE .STK-MED ONE Oseltamivir Phosphate 75 mg 08/12/24 21:05 Oseltamivir 75 Mg Cap PO 08/12/24 21:06 STAT ONE Oseltamivir Phosphate Confirm 08/12/24 21:17 Oseltamivir 75 Mg Cap Administered 08/12/24 21:18 Dose 75 mg PO .STK-MED ONE Lab/Rad Data: Laboratory Results 08/12/24 Range/Units 20:08 Influenza Type A Ag POSITIVE A (NEGATIVE) Influenza Type B Ag NEGATIVE (NEGATIVE) RSV (PCR) NEGATIVE (NEGATIVE) SARS-CoV-2 (PCR) NEGATIVE (NEGATIVE) Group A Strep Antibody NOT DETECTED (NEGATIVE) - Progress Progress: improved, re-examined Air Movement: good Progress Note: 08/12/24 21:25 49 years old is evaluated in the ER for flulike symptoms since yesterday. Patient is not in any distress. She is given symptomatic treatment with Toradol, liquid [place]. She has positive influenza A and started on Tamiflu. Discussed with patient about symptomatic and supportive care and outpatient follow-up. Discussed signs symptoms of worsening needing return to ER which she seems understanding. Stable for discharge. Blood Culture(s) Obtained: No Antibiotics given: No Counseled pt/family regarding: lab results, diagnosis, need for follow-up Medical Desision Making - Diagnostic Testing Diagnostic test were ordered, analyzed, and reviewed by me: Yes - Risk of complications The pt has a mod risk of morbidity or mortality based on: Need for prescription drug management - Departure Departure Disposition: Home Clinical Impression: Influenza A, Viral syndrome Condition: Stable Critical Care Time: No Referrals: DEEP BACA NP [Primary Care Provider] - Follow up with PCP 1 day Instructions: Flu in adults - ED discharge instructions Additional Instructions: Take Tylenol/ibuprofen alternate for symptomatic care. Increase hydration. Follow-up with primary care for reevaluation. Return to ER for any worsening. Prescriptions: Oseltamivir 75 mg [Tamiflu 75MG Capsule] 75 mg PO BID #10 cap
[2024-08-12 21:28] VITALS: RESP 18
[2024-08-12 21:29] VITALS: BP 152/68; PULSE 107
== END 2024-08-12 21:35 | disposition home or self-care (01) ==
LOC: ED 17:51
DX: J10.1 Influenza due to other identified influenza virus with other respiratory manifestations (principal); R51.9 Headache, unspecified; R09.81 Nasal congestion; R05.1 Acute cough; M79.10 Myalgia, unspecified site; I10 Essential (primary) hypertension; Z79.899 Other long term (current) drug therapy
CPT/HCPCS: 0241U; 87651; 96372; 99284; 99283; J1885; A9270-GY